=== PATIENT | male | born 1975 | race African-American/Black ===

== ENCOUNTER 2018-03-04 10:44 | Inpatient (IN) | payer OTHER ==
[2018-03-04 11:32] VITALS: BMI 41.9
--- NOTE | 2018-03-04 12:44 | HP ---
COWS - Scale Resting Pulse: 1= [place] 81-100 Sweatin= Chills/Flushing Restless Observation: 1= Difficult to Sit Still Pupil Size: 1= Pupils >than Normal Bone or Joint Aches: 2= Severe Diffuse Aches Runny Nose/ Eye Tearin= Runny Nose/Eyes GI Upset > 30mins: 2= Nausea/Diarrhea Tremor Observation: 2= Slight Tremor Visible Yawning Observation: 1= 1-2x During Session Anxiety or Irritability: 2=Irritable/Anxious Goose Flesh Skin: 0=Smooth Skin COWS Score: 15 CIWA Score Nausea/Vomitin Muscle Tremors: 2 Anxiety: 2 Agitation: 2 Paroxysmal Sweats: 1-Minimal Palms Moist Orientation: 0-Oriented Tacttile Disturbances: 1-Very Mild Itch/Numbness Auditory Disturbances: 1-Very Mild Visual Disturbances: 1-Very Mild Sensitivity Headache: 2-Mild CIWA-Ar Total Score: 14 - Admission Criteria [facility] Guidelines: Admission for Medically Managed Detox: Requires at least one of the followin. CIWA greater than 12 2. Seizures within the past 24 hours 3. Delirium tremens within the past 24 hours 4. Hallucinations within the past 24 hours 5. Acute intervention needed for co occurring medical disorder 6. Acute intervention needed for co occurring psychiatric disorder 7. Severe withdrawal that cannot be handled at a lower level of care (continued vomiting, continued diarrhea, abnormal vital signs) requiring intravenous medication and/or fluids 8. Admission ROS S - [facility] Chief Complaint: i need help to stop using heroin,alcohol,xanax,cocaine and marijuana Allergies/Adverse Reactions: Allergies Allergy/AdvReac Type Severity Reaction Status Date / Time No Known Drug Allergies Allergy Verified 03/04/18 11:58 History of Present Illness: this 42 years old male with heroin,aicohol,cocaine,marijuana,xanax dependence seeking detox,withdrawal symptom,last detox 2007 [place] [facility] nicotine dependence paranoid schizophrenia no significant period of sobriety obese Exam Limitations: No Limitations - Ebola screening Have you traveled outside of the country in the last 21 days: No Have you had contact with anyone from an Ebola affected area: No Have you been sick,other than usual withdrawal symptoms: No Do you have a fever: No - Review of Systems Constitutional: Chills, Loss of Appetite, Malaise, Night Sweats, Changes in sleep, Weakness EENT: reports: Tearing, Nose Congestion Respiratory: reports: No Symptoms reported Cardiac: reports: No Symptoms Reported GI: reports: Nausea, Poor Appetite, Abdominal cramping : reports: No Symptoms Reported Musculoskeletal: reports: Back Pain, Joint Pain, Muscle Pain, Joint Stiffness Integumentary: reports: Dryness Neuro: reports: Headache, Tremors Endocrine: reports: No Symptoms Reported Hematology: reports: No Symptoms Reported Psychiatric: reports: No Sypmtoms Reported, Judgement Intact, Mood/Affect Appropiate, Orientated x3 (paranoid schizophrenia) Patient History - Patient Medical History Hx Anemia: No Hx Asthma: No Hx Chronic Obstructive Pulmonary Disease (COPD): No Hx Cancer: No Hx Cardiac Disorders: No Hx Congestive Heart Failure: No Hx Hypertension: No Hx Hypercholesterolemia: No Hx Pacemaker: No HX Cerebrovascular Accident: No Hx Seizures: No Hx Dementia: No Hx Diabetes: No Hx Gastrointestinal Disorders: No Hx Liver Disease: No Hx Genitourinary Disorders: No Hx Sexually Transmitted Disorders: No Hx Renal Disease (ESRD): No Hx Thyroid Disease: No Hx Human Immunodeficiency Virus (HIV): No (last 02/05 negative) Hx Hepatitis C: No Hx Depression: No Hx Suicide Attempt: No Hx Bipolar Disorder: No Hx Schizophrenia: Yes (paranioid schizophrenia) Other Medical History: no suicidal,no homicidal - Patient Surgical History Past Surgical History: No - PPD History Previous Implant?: Yes Documented Results: Negative w/o proof Implanted On Prior [facility] Admission?: No PPD to be Administered?: Yes - Smoking Cessation Smoking history: Current every day smoker Have you smoked in the past 12 months: Yes Aproximately how many cigarettes per day: 10 Hx Chewing Tobacco Use: No Initiated information on smoking cessation: Yes 'Breaking Loose' booklet given: 03/04/18 - Substance & Tx. History Hx Alcohol Use: Yes Hx Substance Use: Yes Substance Use Type: Alcohol, Cocaine, Heroin, Marijuana, Tranquilizers Hx Substance Use Treatment: Yes (2007) - Substances Abused Alcohol Route: Oral Frequency: Daily Amount used: 0.5-1 pint of vodka, fireball, Age of first use: 15 Date of Last Use: 02/28/18 Heroin Route: Inhalation Frequency: Daily Amount used: 1 bundle Age of first use: 21 Date of Last Use: 03/04/18 Cocaine Route: Smoking Frequency: Daily Amount used: 50$ Age of first use: 21 Date of Last Use: 03/03/18 Marijuana/Hashish Route: Smoking Frequency: 1-2 times per week Amount used: 20$ Age of first use: 15 Date of Last Use: 03/01/18 Alprazolam (Xanax) Route: Oral Frequency: 1-2 times per week Amount used: 2 mg Age of first use: 21 Date of Last Use: 03/02/18 Family Disease History - Family Disease History Family Disease History: Other: Father (dsa,alcohol,) Admission Physical Exam [facility] - Vital Signs Vital Signs: Vital Signs - 24 hr 03/04/18 11:30 Temperature 98 F Pulse Rate 90 Respiratory 18 Rate Blood Pressure 144/84 - Physical General Appearance: Yes: Moderate Distress, Tremorous, Irritable, Sweating, Anxious HEENTM: Yes: Normal ENT Inspection, [place], Pharynx Normal Respiratory: Yes: Lungs Clear, Normal Breath Sounds, No Respiratory Distress Neck: Yes: Within Normal Limits, Supple, Trachea in good position Breast: Yes: Within Normal Limits Cardiology: Yes: Within Normal Limits, Regular Rhythm, Regular Rate Abdominal: Yes: Within Normal Limits, Normal Bowel Sounds, Non Tender, Soft Genitourinary: Yes: Within Normal Limits Back: Yes: Muscle Spasm Musculoskeletal: Yes: Back pain, Muscle Pain Extremities: Yes: Within Normal Limits, Normal Range of Motion, Tremors Neurological: Yes: front desk administrator II-XII NML intact, Fully Oriented, Alert, Motor Strength 5/5 Integumentary: Yes: Dry Lymphatic: Yes: Within Normal Limits - Diagnostic (1) Opioid dependence with withdrawal Current Visit: Yes Status: Acute (2) Alcohol dependence with uncomplicated withdrawal Current Visit: Yes Status: Acute (3) Cocaine dependence Current Visit: Yes Status: Acute (4) Cannabis dependence Current Visit: Yes Status: Acute (5) Sedative abuse Current Visit: Yes Status: Acute (6) Nicotine dependence Current Visit: Yes Status: Acute (7) Morbid obesity Current Visit: Yes Status: Acute (8) Paranoid schizophrenia Current Visit: Yes Status: Chronic Cleared for Admission [facility] - Detox or Rehab [facility] Level of Care: Medically Managed Detox Regimen/Protocol: Methadone/Valium S Breath Alcohol Content Breath Alcohol Content: 0 Urine Drug Screen - Results Drug Screen Negative: No Urine Drug Screen Results: THC-Marijuana, LENORA-Cocaine, OPI-Opiates, BAR- Barbiturates, BZO-Benzodiazepines, FEN-Fentanyl, BUP-Suboxone
[2018-03-04] MEDS ORDERED: NICOTINE POLACRILEX 2 MG GUM BUC PRN (13:02)
[2018-03-04] MEDS ORDERED: IBUPROFEN 400 MG TABLET (FP) PO PRN (13:02)
[2018-03-04] MEDS ORDERED: MAG HYDROX/AL HYDROX/SIMETH 30 ML UNIT-DOSE CUP PO PRN (13:02)
[2018-03-04] MEDS ORDERED: MAGNESIUM CITRATE 300 ML BOTTLE PO PRN (13:02)
[2018-03-04] MEDS ORDERED: MENTHOL/PHENOL 1 EACH UD MM PRN (13:02)
[2018-03-04] MEDS ORDERED: P-EPHED 60MG/TRIPROLIDI 2.5MG TABLET PO PRN (13:02)
[2018-03-04] MEDS ORDERED: MAGNESIUM HYDROX 2400MG/30ML ORAL SUSPENSION 30 ML CUP PO PRN (13:02)
[2018-03-04] MEDS ORDERED: guaiFENesin/D-METHORPHAN HB 10 ML UNIT-DOSE CUPS PO PRN (13:02)
[2018-03-04] MEDS ORDERED: hydrOXYzine PAMOATE 50 MG CAPSULE (FP) PO PRN (13:02)
[2018-03-04] MEDS ORDERED: ACETAMINOPHEN 325 MG TABLET (FP) PO PRN (13:02)
[2018-03-04] MEDS ORDERED: METHADONE HCL 10 MG TABLET (FOR DETOX USE ONLY) PO ONE ×2 (14:30→23:00)
[2018-03-04] MEDS ORDERED: diazePAM 5 MG TABLET PO ONE (14:30)
[2018-03-04] MEDS: NICOTINE 21 MG/24 HOURS TOPICAL PATCH TD SCH (15:00)
[2018-03-04] MEDS: diazePAM 5 MG TABLET PO SCH ×2 (15:04→22:05)
--- NOTE | 2018-03-04 16:43 | CONSULT ---
[facility] Psychiatric Consult - Data Date of interview: 03/04/18 Admission source: [facility] Identifying data: First admission to [facility] for this 42 y/o AA male seeking detoxification treatment, on , for heroin, alcohol, benzodiazepine (xanax ), cocaine and cannabis dependence. Patient is , a father of two, domiciled (lives with his mother), unemployed and supported on SSI benefits. Substance Abuse History: Confirmed by the patient in this session. Details in current [facility] report as follows : Smoking history: Current every day smoker. Have you smoked in the past 12 months: Yes. Aproximately how many cigarettes per day: 10. Hx Chewing Tobacco Use: No. Initiated information on smoking cessation: Yes. 'Breaking Loose' booklet given: 03/04/18. - Substance & Tx. History. Hx Alcohol Use: Yes. Hx Substance Use: Yes. Substance Use Type: Alcohol, Cocaine, Heroin, Marijuana, Tranquilizers. Hx Substance Use Treatment : Yes (2007). - Substances Abused. Alcohol. Route: Oral. Frequency : Daily. Amount used: 0.5-1 pint of vodka, fireball,. Age of first use: 15. Date of Last Use: 02/28/18. Heroin. Route: Inhalation. Frequency: Daily. Amount used: 1 bundle. Age of first use: 21. Date of Last Use: 03/04/18. Cocaine. Route: Smoking. Frequency: Daily. Amount used: 50$. Age of first use: 21. Date of Last Use: 03/03/18. Marijuana/Hashish. Route: Smoking. Frequency: 1-2 times per week. Amount used: 20$. Age of first use: 15. Date of Last Use: 03/01/18. Alprazolam (Xanax). Route: Oral. Frequency: 1-2 times per week. Amount used: 2 mg. Age of first use: 21. Date of Last Use: Medical History: Obesity and bronchial asthma. Psychiatric History: Patient admits to a history of multiple psychiatric hospitalizations ([facility] and [facility]). Discharged two weeks ago from [facility] ([facility]) after a retention of five days. Mr Portillo endorses the diagnosis of Paranoid Schizophrenia (onset of psychiatric disturbances at age 15) and reports maintenance on a combination of paliperidone + quetiapine. Sees a private psychiatrist in [place], [place]. Patient declares that he has stopped taking paliperidone but has remained on seroquel 200 mg/hs. Treatment with haloperidol + cogentin at the [facility], two weeks ago, was remarkable for intolerable adverse effects (AIMS) which warranted further maintenance with quetiapine (self-report) . Patient reports a remote history of one suicide attempt (years ago), via overdose with medications. Physical/Sexual Abuse/Trauma History: Patient denies history os abuse. Additional Comment: Urine Drug Screen Results: THC-Marijuana, LENORA-Cocaine, OPI- Opiates, BAR-Barbiturates, BZO-Benzodiazepines, FEN-Fentanyl, BUP-Suboxone. Noted. Mental Status Exam - Mental Status Exam Alert and Oriented to: Time, Place, Person Cognitive Function: Good Patient Appearance: Well Groomed (obese) Mood: Withdrawn, Hopeful Affect: Appropriate, Normal Range Patient Behavior: Fatigued, Appropriate (friendly and well-mannered), Cooperative Speech Pattern: Clear, Appropriate Voice Loudness: Normal Thought Process: Goal Oriented Thought Disorder: Not Present Hallucinations: Denies Suicidal Ideation: Denies Homicidal Ideation: Denies Insight/Judgement: Poor Sleep: Poorly, Difficulty falling asleep Appetite: Good Muscle strength/Tone: Normal Gait/Station: Normal Psychiatric Findings - Problem List ([place] 1, 2,3) (1) Opioid dependence with withdrawal Current Visit: Yes Status: Acute (2) Alcohol dependence with uncomplicated withdrawal Current Visit: Yes Status: Acute (3) Cannabis dependence Current Visit: Yes Status: Acute (4) Cocaine dependence Current Visit: Yes Status: Acute (5) Nicotine dependence Current Visit: Yes Status: Acute (6) Paranoid schizophrenia Current Visit: Yes Status: Chronic (7) Sedative abuse Current Visit: Yes Status: Acute (8) Insomnia Current Visit: Yes Status: Acute - Initial Treatment Plan Initial Treatment Plan: Psychoeducation. Sleep hygiene. Detoxification in progress. AA/NA meetings. Motivational rounds. Group + supportive psychotherapy. Patient is made aware of the resources available for relapse prevention (opioid antagonist vs full agonist, counseling, AA/NA fellowships, psychotherapy). He agrees to resume seroquel ONLY. Will continue seroquel 200 mg po hs (to be titrated to 200 mg po bid). Side effects/benefits discussed with the patient. Informed, in particular, of the potential for metabolic syndrome. Mr Portillo consents (verbally) to this plan of care. Warned about risk taken by declining care with paliperidone (decompensations, relapses, rehospitalizations). Observation.
[2018-03-04 17:21] LABS: URINE APPEARANCE CLEAR; URINE BILIRUBIN NEGATIVE (<2.0 mg/dL); URINE COLOR DKYELLOW; URINE GLUCOSE (UA) NEGATIVE (NEGATIVE); URINE KETONE TRACE (NEGATIVE); URINE LEUK ESTERASE NEGATIVE (NEGATIVE); URINE NITRITE NEGATIVE (NEGATIVE); URINE PROTEIN 1+ (NEGATIVE)
[2018-03-04 17:42] LABS: EPI CELLS RARE /HPF (FEW); URINE HYALINE CAST 2 /lpf; URINE MUCUS MANY
[2018-03-04] MEDS ORDERED: MELATONIN 5 MG TABLETS PO PRN (22:00)
[2018-03-04] MEDS: cloNIDine HCL 0.1 MG TABLET PO SCH (22:04)
[2018-03-04] MEDS: THIAMINE HCL 100 MG TABLET (FP) PO SCH (22:04)
[2018-03-04] MEDS: QUEtiapine FUMARATE 200 MG TABLET PO SCH (22:04)
[2018-03-05] MEDS: diazePAM 5 MG TABLET PO SCH ×3 (05:44→22:40)
[2018-03-05] MEDS ORDERED: METHADONE HCL 10 MG TABLET (FOR DETOX USE ONLY) PO SCH (10:00)
[2018-03-05 10:16] LABS: HEMOGLOBIN 13.8 GM/dL (11.7-16.9); MCH 27.5 pg (25.7-33.7); MCHC 32.1 g/dl (32.0-35.9); MEAN CELL VOLUME 85.8 fl (80-96); PLATELET COUNT 294 K/MM3 (134-434); RBC 5.02 M/mm3 (4.00-5.60); RDW 14.6 % (11.9-15.9); WHITE BLOOD COUNT 8.1 K/mm3 (4.0-10.0)
[2018-03-05 10:46] LABS: ALBUMIN 4.2 g/dl (3.4-5.0); ALK PHOS 67 U/L (45-117); ANION GAP 9 MMOL/L (8-16); BILIRUBIN,TOTAL 0.6 mg/dL (0.2-1); BLOOD UREA NITROGEN 10 mg/dL (7-18); CHLORIDE 100 mmol/L (98-107); CO2 30 mmol/L (21-32); GLUCOSE,RANDOM 128 mg/dL (74-106); POTASSIUM 3.9 mmol/L (3.5-5.1); SGOT/AST 20 U/L (15-37); SGPT/ALT 32 U/L (13-61); SODIUM 139 mmol/L (136-145); TOT PROT 7.5 g/dl (6.4-8.2)
[2018-03-05] MEDS: diazePAM 5 MG TABLET PO PRN (10:47)
[2018-03-05] MEDS: PRENATAL VITAMINS W/ FOLIC ACID TABLET (FP) PO SCH (10:47)
[2018-03-05] MEDS: cloNIDine HCL 0.1 MG TABLET PO SCH ×2 (10:47→22:40)
[2018-03-05] MEDS: NICOTINE 21 MG/24 HOURS TOPICAL PATCH TD SCH (10:50)
--- NOTE | 2018-03-05 11:56 | EKG ---
Test Reason : Blood Pressure : / mmHG Vent. Rate : 073 BPM Atrial Rate : 073 BPM P-R Int : 180 ms QRS Dur : 098 ms QT Int : 418 ms P-R-T Axes : 051 075 035 degrees QTc Int : 460 ms NORMAL SINUS RHYTHM MINIMAL VOLTAGE CRITERIA FOR LVH, MAY BE NORMAL VARIANT BORDERLINE ECG NO PREVIOUS ECGS AVAILABLE Confirmed by MICHI HOBBS MD ([id number]) on 03/05/2018 11:56:00 AM Referred By: Confirmed By:MICHI HOBBS MD
--- NOTE | 2018-03-05 15:20 | PN ---
[facility] CIWA - CIWA Score Nausea/Vomitin-No Nausea/No Vomiting Muscle Tremors: None Anxiety: 3 Agitation: 1-Slight > Activity Paroxysmal Sweats: 3 Orientation: 0-Oriented Tacttile Disturbances: 2-Mild Itch/Numbness/Burn Auditory Disturbances: 2-Mild Harshness/Frighten Visual Disturbances: 3-Moderate Sensitivity Headache: 0-None Present CIWA-Ar Total Score: 14 S COWS - Scale Resting Pulse: 1= [place] 81-100 Sweatin= Chills/Flushing Restless Observation: 1= Difficult to Sit Still Pupil Size: 0= Normal to Room Light Bone or Joint Aches: 2= Severe Diffuse Aches Runny Nose/ Eye Tearin= None GI Upset > 30mins: 0= None Tremor Observation of Outstretched Hands: 0= None Yawning Observation: 1= 1-2x During Session Anxiety or Irritability: 2=Irritable/Anxious Goose Flesh Skin: 3=Piloerection COWS Score: 11 S Progress Note (SOAP) Subjective: Constipation, Body Aches, Sweating. Objective: PATIENT A & O X 3. NO ACUTE DISTRESS. 03/05/18 15:19 Vital Signs Temperature 97.9 F 03/05/18 13:28 Pulse Rate 89 03/05/18 13:28 Respiratory Rate 16 03/05/18 13:28 Blood Pressure 155/74 03/05/18 13:28 O2 Sat by Pulse Oximetry (%) Laboratory Tests 03/04/18 03/05/18 03/05/18 15:40 05:50 05:50 WBC 8.1 RBC 5.02 Hgb 13.8 Hct 43.0 MCV 85.8 MCH 27.5 MCHC 32.1 RDW 14.6 Plt Count 294 MPV 10.0 Sodium 139 Potassium 3.9 Chloride 100 Carbon Dioxide 30 Anion Gap 9 BUN 10 Creatinine 1.0 Creat Clearance w eGFR > 60 Random Glucose 128 H Calcium 9.0 Total Bilirubin 0.6 AST 20 ALT 32 Alkaline Phosphatase 67 Total Protein 7.5 Albumin 4.2 Urine Color Dkyellow Urine Appearance Clear Urine pH 5.0 Ur Specific [place] 1.030 Urine Protein 1+ H Urine Glucose (UA) Negative Urine Ketones Trace H Urine Blood Negative Urine Nitrite Negative Urine Bilirubin Negative Urine Urobilinogen 2.0 Ur Leukocyte Esterase Negative Urine WBC (Auto) 3 Urine RBC (Auto) <1 Ur Epithelial Cells Rare Hyaline Casts 2 Urine Mucus Many RPR Titer 03/05/18 05:50 WBC RBC Hgb Hct MCV MCH MCHC RDW Plt Count MPV Sodium Potassium Chloride Carbon Dioxide Anion Gap BUN Creatinine Creat Clearance w eGFR Random Glucose Calcium Total Bilirubin AST ALT Alkaline Phosphatase Total Protein Albumin Urine Color Urine Appearance Urine pH Ur Specific [place] Urine Protein Urine Glucose (UA) Urine Ketones Urine Blood Urine Nitrite Urine Bilirubin Urine Urobilinogen Ur Leukocyte Esterase Urine WBC (Auto) Urine RBC (Auto) Ur Epithelial Cells Hyaline Casts Urine Mucus RPR Titer Nonreactive LABS NOTED. Assessment: 03/05/18 15:20 WITHDRAWAL SYMPTOMS. Plan: CONTINUE DETOX. BGM [facility] FOR ELEVATED ADMISSION RANDOM GLUCOSE LEVEL.
[2018-03-05] MEDS: QUEtiapine FUMARATE 200 MG TABLET PO SCH (22:40)
[2018-03-05] MEDS: CYCLOBENZAPRINE HCL 10 MG TABLET (FP) PO PRN (22:40)
[2018-03-05] MEDS: THIAMINE HCL 100 MG TABLET (FP) PO SCH (22:40)
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
--- NOTE | 2018-03-06 06:52 | DS ---
[facility] Detox Discharge Summary Admission Date: 03/04/18 - Physical Exam Results Vital Signs: Vital Signs Temperature 97.0 F L 03/05/18 22:10 Pulse Rate 86 03/05/18 22:10 Respiratory Rate 18 03/06/18 03:30 Blood Pressure 128/81 03/05/18 22:10 O2 Sat by Pulse Oximetry (%) - Medication Discharge Medications: Ambulatory Orders Paliperidone [Invega] 6 mg PO BID 03/04/18 Quetiapine Fumarate [Seroquel -] 200 mg PO BID 03/04/18
--- NOTE | 2018-03-06 08:29 | PN ---
[facility] Progress Note Note: Met w/ patient this am. Patient is alert and apologetic about last nights outburst. Discussed behavioral expectations and agrees to refrain from being verbally or physically abusive. Based upon agreed upon behavior, will allow patient to complete detox protocol.
[2018-03-06] MEDS: cloNIDine HCL 0.1 MG TABLET PO SCH ×2 (10:40→22:25)
[2018-03-06] MEDS: diazePAM 5 MG TABLET PO SCH ×2 (10:40→22:24)
[2018-03-06] MEDS: PRENATAL VITAMINS W/ FOLIC ACID TABLET (FP) PO SCH (10:40)
[2018-03-06] MEDS: NICOTINE 21 MG/24 HOURS TOPICAL PATCH TD SCH (10:41)
[2018-03-06] MEDS: METHADONE HCL 5 MG TABLET (FOR DETOX USE ONLY) PO SCH (10:41)
--- NOTE | 2018-03-06 14:43 | PN ---
[facility] Progress Note (SOAP) Subjective: Back pain, fingers feeling numb, interrupted sleep Objective: 03/06/18 14:41 Last Vital Signs Temp Pulse Resp BP Pulse Ox 98.6 F 66 18 118/77 03/06/18 10:13 03/06/18 10:13 03/06/18 10:13 03/06/18 10:13 Laboratory Tests 03/04/18 03/05/18 03/05/18 15:40 05:50 05:50 WBC 8.1 RBC 5.02 Hgb 13.8 Hct 43.0 MCV 85.8 MCH 27.5 MCHC 32.1 RDW 14.6 Plt Count 294 MPV 10.0 Sodium 139 Potassium 3.9 Chloride 100 Carbon Dioxide 30 Anion Gap 9 BUN 10 Creatinine 1.0 Creat Clearance w eGFR > 60 POC Glucometer Random Glucose 128 H Calcium 9.0 Total Bilirubin 0.6 AST 20 ALT 32 Alkaline Phosphatase 67 Total Protein 7.5 Albumin 4.2 Urine Color Dkyellow Urine Appearance Clear Urine pH 5.0 Ur Specific [place] 1.030 Urine Protein 1+ H Urine Glucose (UA) Negative Urine Ketones Trace H Urine Blood Negative Urine Nitrite Negative Urine Bilirubin Negative Urine Urobilinogen 2.0 Ur Leukocyte Esterase Negative Urine WBC (Auto) 3 Urine RBC (Auto) <1 Ur Epithelial Cells Rare Hyaline Casts 2 Urine Mucus Many RPR Titer 03/05/18 03/06/18 05:50 06:04 WBC RBC Hgb Hct MCV MCH MCHC RDW Plt Count MPV Sodium Potassium Chloride Carbon Dioxide Anion Gap BUN Creatinine Creat Clearance w eGFR POC Glucometer 127 Random Glucose Calcium Total Bilirubin AST ALT Alkaline Phosphatase Total Protein Albumin Urine Color Urine Appearance Urine pH Ur Specific [place] Urine Protein Urine Glucose (UA) Urine Ketones Urine Blood Urine Nitrite Urine Bilirubin Urine Urobilinogen Ur Leukocyte Esterase Urine WBC (Auto) Urine RBC (Auto) Ur Epithelial Cells Hyaline Casts Urine Mucus RPR Titer Nonreactive Labs reviewed: UA abnormal Assessment: 03/06/18 15:06 Withdrawal symptoms Noted with abnormal UA Plan: Continue detox Abnormal UA: encouraged PO water intake, repeat UA
[2018-03-06] MEDS: THIAMINE HCL 100 MG TABLET (FP) PO SCH (22:24)
[2018-03-06] MEDS: QUEtiapine FUMARATE 200 MG TABLET PO SCH (22:24)
[2018-03-07] MEDS: diazePAM 5 MG TABLET PO PRN (09:04)
[2018-03-07] MEDS: PRENATAL VITAMINS W/ FOLIC ACID TABLET (FP) PO SCH (10:33)
[2018-03-07] MEDS: cloNIDine HCL 0.1 MG TABLET PO SCH ×2 (10:34→22:13)
[2018-03-07] MEDS: METHADONE HCL 5 MG TABLET (FOR DETOX USE ONLY) PO SCH (10:34)
[2018-03-07] MEDS: NICOTINE 21 MG/24 HOURS TOPICAL PATCH TD SCH (10:35)
[2018-03-07] MEDS: diazePAM 5 MG TABLET PO SCH ×2 (10:36→22:13)
--- NOTE | 2018-03-07 13:14 | PN ---
[facility] Progress Note Note: PATIENT CONTINUES WITH DETOX REGIMEN. RESTING IN BED. C/O INTERRUPTED SLEEP BUT FEELS BETTER. Vital Signs Temperature 98.4 F 03/07/18 09:08 Pulse Rate 79 03/07/18 09:08 Respiratory Rate 18 03/07/18 09:08 Blood Pressure 107/64 03/07/18 09:08 O2 Sat by Pulse Oximetry (%) PE: SKIN WARM AND DRY ALERT AND ORIENTED X 3 EXT FULL ROM AMB AD CHANDNI A/P: WITHDRAWAL SX CONTINUE DETOX ENCOURAGE ORAL HYDRATION CONTINUE TO MONITOR
[2018-03-07] MEDS: LOPERAMIDE HCL 2 MG CAPSULE PO PRN (18:11)
[2018-03-07 19:15] LABS: URINE APPEARANCE CLEAR; URINE BILIRUBIN NEGATIVE (<2.0 mg/dL); URINE COLOR LTYELLOW; URINE GLUCOSE (UA) 3+ (NEGATIVE); URINE KETONE NEGATIVE (NEGATIVE); URINE LEUK ESTERASE NEGATIVE (NEGATIVE); URINE NITRITE NEGATIVE (NEGATIVE); URINE PROTEIN NEGATIVE (NEGATIVE); URINE UROBILINOGEN NEGATIVE mg/dL (0.2-1.0)
[2018-03-07] MEDS: QUEtiapine FUMARATE 200 MG TABLET PO SCH (22:13)
[2018-03-07] MEDS: THIAMINE HCL 100 MG TABLET (FP) PO SCH (22:13)
[2018-03-07] MEDS: CYCLOBENZAPRINE HCL 10 MG TABLET (FP) PO PRN (22:17)
[2018-03-08] MEDS: LOPERAMIDE HCL 2 MG CAPSULE PO PRN (03:25)
[2018-03-08] MEDS ORDERED: diazePAM 5 MG TABLET PO SCH (10:00)
[2018-03-08] MEDS ORDERED: METHADONE HCL 10 MG TABLET (FOR DETOX USE ONLY) PO SCH (10:00)
[2018-03-08] MEDS: PRENATAL VITAMINS W/ FOLIC ACID TABLET (FP) PO SCH (10:29)
[2018-03-08] MEDS: NICOTINE 21 MG/24 HOURS TOPICAL PATCH TD SCH (10:29)
[2018-03-08] MEDS: cloNIDine HCL 0.1 MG TABLET PO SCH ×2 (10:29→22:33)
[2018-03-08] MEDS: DIPHENOXYLATE 2.5/ATROPINE.025 1 COMBO TABLET PO PRN ×2 (10:30→20:32)
--- NOTE | 2018-03-08 16:17 | PN ---
[facility] Progress Note (SOAP) Subjective: Stomach cramp, diarrhea (stated trace of blood on tissue after wiping and not sure if he has hemorrhoid, no blood in toilet), takes imodium without any improvement Objective: 03/08/18 16:14 Last Vital Signs Temp Pulse Resp BP Pulse Ox 97.8 F 97 H 20 130/73 03/08/18 13:29 03/08/18 13:29 03/08/18 13:29 03/08/18 13:29 Laboratory Tests 03/04/18 03/05/18 03/05/18 15:40 05:50 05:50 WBC 8.1 RBC 5.02 Hgb 13.8 Hct 43.0 MCV 85.8 MCH 27.5 MCHC 32.1 RDW 14.6 Plt Count 294 MPV 10.0 Sodium 139 Potassium 3.9 Chloride 100 Carbon Dioxide 30 Anion Gap 9 BUN 10 Creatinine 1.0 Creat Clearance w eGFR > 60 POC Glucometer Random Glucose 128 H Calcium 9.0 Total Bilirubin 0.6 AST 20 ALT 32 Alkaline Phosphatase 67 Total Protein 7.5 Albumin 4.2 Urine Color Dkyellow Urine Appearance Clear Urine pH 5.0 Ur Specific [place] 1.030 Urine Protein 1+ H Urine Glucose (UA) Negative Urine Ketones Trace H Urine Blood Negative Urine Nitrite Negative Urine Bilirubin Negative Urine Urobilinogen 2.0 Ur Leukocyte Esterase Negative Urine WBC (Auto) 3 Urine RBC (Auto) <1 Ur Epithelial Cells Rare Hyaline Casts 2 Urine Mucus Many RPR Titer 03/05/18 03/06/18 03/07/18 05:50 06:04 06:03 WBC RBC Hgb Hct MCV MCH MCHC RDW Plt Count MPV Sodium Potassium Chloride Carbon Dioxide Anion Gap BUN Creatinine Creat Clearance w eGFR POC Glucometer 127 107 Random Glucose Calcium Total Bilirubin AST ALT Alkaline Phosphatase Total Protein Albumin Urine Color Urine Appearance Urine pH Ur Specific [place] Urine Protein Urine Glucose (UA) Urine Ketones Urine Blood Urine Nitrite Urine Bilirubin Urine Urobilinogen Ur Leukocyte Esterase Urine WBC (Auto) Urine RBC (Auto) Ur Epithelial Cells Hyaline Casts Urine Mucus RPR Titer Nonreactive 03/07/18 03/08/18 12:20 08:08 WBC RBC Hgb Hct MCV MCH MCHC RDW Plt Count MPV Sodium Potassium Chloride Carbon Dioxide Anion Gap BUN Creatinine Creat Clearance w eGFR POC Glucometer 89 Random Glucose Calcium Total Bilirubin AST ALT Alkaline Phosphatase Total Protein Albumin Urine Color Ltyellow Urine Appearance Clear Urine pH 5.0 Ur Specific [place] 1.023 Urine Protein Negative Urine Glucose (UA) 3+ H Urine Ketones Negative Urine Blood Negative Urine Nitrite Negative Urine Bilirubin Negative Urine Urobilinogen Negative Ur Leukocyte Esterase Negative Urine WBC (Auto) Urine RBC (Auto) Ur Epithelial Cells Hyaline Casts Urine Mucus RPR Titer Labs reviewed: UA shows 3+ glucose, patient denies any history of DM Assessment: 03/08/18 16:15 Withdrawal symptoms C/O persistent diarrhea, noted with glycosuria Plan: Continue detox Diarrhea: d/c imodium, start lomotil prn, encouraged PO water intake, send BMP in AM Patient is scheduled for discharge tomorrow (if diarrhea improves) Glycosuria: probably due to prediabetes, follow up with PCP post discharge in 1- 2 weeks
[2018-03-08] MEDS: ONDANSETRON *ODT* 4 MG TABLET SL PRN (20:33)
[2018-03-08] MEDS: QUEtiapine FUMARATE 200 MG TABLET PO SCH (22:33)
[2018-03-08] MEDS: THIAMINE HCL 100 MG TABLET (FP) PO SCH (22:33)
[2018-03-08] MEDS: CYCLOBENZAPRINE HCL 10 MG TABLET (FP) PO PRN (22:36)
[2018-03-09] MEDS ORDERED: METHADONE HCL 5 MG TABLET (FOR DETOX USE ONLY) PO SCH (06:00)
[2018-03-09 09:27] VITALS: BP 112/73; PULSE 86; TEMP 96.9
[2018-03-09] MEDS: PRENATAL VITAMINS W/ FOLIC ACID TABLET (FP) PO SCH (10:01)
[2018-03-09] MEDS: DIPHENOXYLATE 2.5/ATROPINE.025 1 COMBO TABLET PO PRN (10:01)
[2018-03-09] MEDS: NICOTINE 21 MG/24 HOURS TOPICAL PATCH TD SCH (10:02)
[2018-03-09] MEDS: ONDANSETRON *ODT* 4 MG TABLET SL PRN (10:02)
[2018-03-09] MEDS: cloNIDine HCL 0.1 MG TABLET PO SCH (10:03)
[2018-03-09 10:32] LABS: ANION GAP 8 MMOL/L (8-16); BLOOD UREA NITROGEN 8 mg/dL (7-18); CALCIUM 8.6 mg/dL (8.5-10.1); CHLORIDE 102 mmol/L (98-107); CO2 27 mmol/L (21-32); CREATININE 0.8 mg/dL (0.55-1.3); GLUCOSE,RANDOM 113 mg/dL (74-106); POTASSIUM 4.2 mmol/L (3.5-5.1); SODIUM 137 mmol/L (136-145)
--- NOTE | 2018-03-09 12:22 | DS ---
[facility] Detox Discharge Summary Admission Date: 03/04/18 Discharge Date: 03/09/18 - History Present History: Alcohol Dependence, Opioid Dependence, Sedative Dependence Additional Comments: 42 years old male admitted on 03/04/18 for alcohol benzo and opiate withdrawal sx completed detox regimen [facility] - Physical Exam Results Vital Signs: Vital Signs Temperature 96.9 F L 03/09/18 09:26 Pulse Rate 86 03/09/18 09:26 Respiratory Rate 20 03/09/18 09:26 Blood Pressure 112/73 03/09/18 09:26 O2 Sat by Pulse Oximetry (%) Pertinent Admission Physical Exam Findings: alcohol benzo opiate withdrawal sx Vital Signs Temperature 96.9 F L 03/09/18 09:26 Pulse Rate 86 03/09/18 09:26 Respiratory Rate 20 03/09/18 09:26 Blood Pressure 112/73 03/09/18 09:26 O2 Sat by Pulse Oximetry (%) Laboratory Last Values WBC 8.1 K/mm3 (4.0-10.0) 03/05/18 05:50 RBC 5.02 M/mm3 (4.00-5.60) 03/05/18 05:50 Hgb 13.8 GM/dL (11.7-16.9) 03/05/18 05:50 Hct 43.0 % (35.4-49) 03/05/18 05:50 MCV 85.8 fl (80-96) 03/05/18 05:50 MCH 27.5 pg (25.7-33.7) 03/05/18 05:50 MCHC 32.1 g/dl (32.0-35.9) 03/05/18 05:50 RDW 14.6 % (11.9-15.9) 03/05/18 05:50 Plt Count 294 K/MM3 (134-434) 03/05/18 05:50 MPV 10.0 fl (7.5-11.1) 03/05/18 05:50 Sodium 137 mmol/L (136-145) 03/09/18 07:00 Potassium 4.2 mmol/L (3.5-5.1) 03/09/18 07:00 Chloride 102 mmol/L (98-107) 03/09/18 07:00 Carbon Dioxide 27 mmol/L (21-32) 03/09/18 07:00 Anion Gap 8 MMOL/L (8-16) 03/09/18 07:00 BUN 8 mg/dL (7-18) 03/09/18 07:00 Creatinine 0.8 mg/dL (0.55-1.3) 03/09/18 07:00 Creat Clearance w eGFR > 60 (>60) 03/09/18 07:00 POC Glucometer 89 UNITS (80-120) 03/08/18 08:08 Random Glucose 113 mg/dL (74-106) H 03/09/18 07:00 Calcium 8.6 mg/dL (8.5-10.1) 03/09/18 07:00 Total Bilirubin 0.6 mg/dL (0.2-1) 03/05/18 05:50 AST 20 U/L (15-37) 03/05/18 05:50 ALT 32 U/L (13-61) 03/05/18 05:50 Alkaline Phosphatase 67 U/L (45-117) 03/05/18 05:50 Total Protein 7.5 g/dl (6.4-8.2) 03/05/18 05:50 Albumin 4.2 g/dl (3.4-5.0) 03/05/18 05:50 Urine Color Ltyellow 03/07/18 12:20 Urine Appearance Clear 03/07/18 12:20 Urine pH 5.0 (5.0-8.0) 03/07/18 12:20 Ur Specific [place] 1.023 (1.010-1.035) 03/07/18 12:20 Urine Protein Negative (NEGATIVE) 03/07/18 12:20 Urine Glucose (UA) 3+ (NEGATIVE) H 03/07/18 12:20 Urine Ketones Negative (NEGATIVE) 03/07/18 12:20 Urine Blood Negative (NEGATIVE) 03/07/18 12:20 Urine Nitrite Negative (NEGATIVE) 03/07/18 12:20 Urine Bilirubin Negative (<2.0 mg/dL) 03/07/18 12:20 Urine Urobilinogen Negative mg/dL (0.2-1.0) 03/07/18 12:20 Ur Leukocyte Esterase Negative (NEGATIVE) 03/07/18 12:20 Urine WBC (Auto) 3 /hpf (3-5) 03/04/18 15:40 Urine RBC (Auto) <1 /hpf (0-3) 03/04/18 15:40 Ur Epithelial Cells Rare /HPF (FEW) 03/04/18 15:40 Hyaline Casts 2 /lpf 03/04/18 15:40 Urine Mucus Many 03/04/18 15:40 RPR Titer Nonreactive (NONREACTIVE) 03/05/18 05:50 lab noted - Treatment Hospital Course: Detox Protocol Followed, Detoxed Safely, Responded well, Discharged Condition Good, Rehab Referral Accepted - Medication Discharge Medications: Ambulatory Orders Paliperidone [Invega] 6 mg PO BID 03/04/18 Quetiapine Fumarate [Seroquel -] 200 mg PO BID 03/04/18 - Diagnosis (1) Sedative, hypnotic or anxiolytic abuse, uncomplicated Status: Acute (2) Alcohol dependence with uncomplicated withdrawal Status: Acute (3) Opioid dependence with withdrawal Status: Acute (4) Nicotine dependence Status: Acute Qualifiers: Nicotine product type: cigarettes Substance use status: in withdrawal Qualified Code(s): F17.213 - Nicotine dependence, cigarettes, with withdrawal - AMA Did Patient Leave Against Medical Advice: No
== END 2018-03-09 10:13 | disposition home or self-care (01) | DRG 897 ==
LOC: YASAS 10:44 → Y6N 13:55 → Y3N 03-05 22:46
PROC: HZ2ZZZZ Detoxification Services for Substance Abuse Treatment (ICD-10-PCS; principal; 2018-03-04)
DX: F11.23 Opioid dependence with withdrawal (principal); F14.20 Cocaine dependence, uncomplicated; F20.0 Paranoid schizophrenia; Z68.41 Body mass index [BMI] 40.0-44.9, adult; F10.230 Alcohol dependence with withdrawal, uncomplicated; F13.10 Sedative, hypnotic or anxiolytic abuse, uncomplicated; F12.20 Cannabis dependence, uncomplicated; F17.210 Nicotine dependence, cigarettes, uncomplicated; G47.00 Insomnia, unspecified; R73.9 Hyperglycemia, unspecified; R82.90 Unspecified abnormal findings in urine; E66.01 Morbid (severe) obesity due to excess calories
CPT/HCPCS: 36415; 80048; 80053; 81003; 81015; 82962; 85027; 86593; 93005; 93010; J0735; Q0162